=== PATIENT | female | born 1995 | race Caucasian/White ===

== ENCOUNTER 2019-04-23 18:35 | Emergency (ER) | payer BC ==
[~2019-04-23] VITALS: Ht 157.5 cm; Wt 81.6 kg
[2019-04-23 18:55] VITALS: BP 119/62
--- NOTE | 2019-04-23 18:58 | NUR ---
WAIT AT LOBBY.
--- NOTE | 2019-04-23 19:39 | NUR ---
Dr. Campos examining patient.
--- NOTE | 2019-04-23 20:03 | NUR ---
24 YO F CO SORE THROAT FOR 1W. NO COUGH PRESENT AND LUNG SOUNDS CLEAR THROUGHOUT. PT HAS NO MED HX AND IS TAKING MO RX MEDS. NO ONE AROUND PT IS SICK AT THIS TIME. PT IS CURRENTLY LAYING IN BED RESTING WITH ONE SIDE RAIL UP.
[2019-04-23] MEDS: KETOROLAC 60 MG/2 ML VIAL IM ONE (20:19)
[2019-04-23 20:41] VITALS: BP 119/62
--- NOTE | 2019-04-23 20:42 | NUR ---
Patient discharged with v/s stable. Written and verbal after care instructions given and explained. Patient alert, oriented and verbalized understanding of instructions. Ambulatory with steady gait. All questions addressed prior to discharge. ID band removed. Patient advised to follow up with PMD. Rx of PREDNISONE,MOTRIN AND ZOFRAN given. Patient educated on indication of medication including possible reaction and side effects. Opportunity to ask questions provided and answered.
--- NOTE | 2019-04-23 20:42 | NUR ---
Note pantera in EDM - 04/23/19 at 2041 by TOÑITO Patient discharged with v/s stable. Written and verbal after care instructions given and explained. Patient alert, oriented and verbalized understanding of instructions. Ambulatory with steady gait. All questions addressed prior to discharge. ID band removed. Patient advised to follow up with PMD. Rx of PREDNISONE AND MOTRIN given. Patient educated on indication of medication including possible reaction and side effects. Opportunity to ask questions provided and answered.
== END 2019-04-23 20:42 | disposition home or self-care (01) ==
LOC: MED 18:35
DX: J11.1 Influenza due to unidentified influenza virus with other respiratory manifestations (principal); J02.9 Acute pharyngitis, unspecified; Z88.0 Allergy status to penicillin
CPT/HCPCS: 81002; 96372; 99283; J1885

== ENCOUNTER 2022-09-11 09:10 | Emergency (ER) | payer BC ==
[~2022-09-11] VITALS: Ht 157.5 cm; Wt 79.4 kg
[2022-09-11 09:30] VITALS: BP 118/74; PULSE 75; RESP 20; TEMP 97.4; O2SAT 100
--- NOTE | 2022-09-11 09:30 | NUR ---
PT AMBULATED TO BED 04
--- NOTE | 2022-09-11 09:35 | NUR ---
27 Y/O FEMALE BIB SPOUSE, C/O ABDOMINAL PAIN IN LUQ THAT STARTED 2 YEARS AGO AND HAS BEEN A CHRONIC PAIN, BUT STATES PAIN HAS WORSENED WITHIN THE PAST 5 DAYS. PT CURRENTLY SEEES SPECIALIST AND PCP FOR CONDITION. SKIN IS PINK/WARM/DRY; AAOX4 WITH EVEN AND STEADY GAIT; LUNGS CLEAR BL; HR EVEN AND REGULAR; PT DENIES ANY FEVER, CP, SOB, OR COUGH AT THIS TIME; PATIENT STATES PAIN OF 9/10 AT THIS TIME (PRESSURE, ACHING); VSS; PATIENT POSITIONED FOR COMFORT; HOB ELEVATED; BEDRAILS UP X2; BED DOWN. ER MD MADE AWARE OF PT STATUS. PT IN GOWN FOR ASSESSMENT. CALL LIGHT WITHIN REACH. PMH: ASTHMA ALLERGY: PENICILLIN (HIVES) MED: LAXATIVE ([facility])
[2022-09-11 09:36] VITALS: O2SAT 100
[2022-09-11] MEDS ORDERED: BEN10 PO (09:59)
[2022-09-11] MEDS ORDERED: FAMO-92 PO (09:59)
--- NOTE | 2022-09-11 10:06 | NUR ---
Patient discharged with v/s stable. Written and verbal after care instructions FOR GERD AND IBS given and explained. Patient alert, oriented and verbalized understanding of instructions. Ambulatory with steady gait. All questions addressed prior to discharge. ID band removed. Patient advised to follow up with PMD. Rx of BENTYL AND PEPCID given. Opportunity to ask questions provided and answered.
== END 2022-09-11 10:06 | disposition home or self-care (01) ==
LOC: MED 09:10
DX: K21.9 Gastro-esophageal reflux disease without esophagitis (principal); J45.909 Unspecified asthma, uncomplicated; F41.9 Anxiety disorder, unspecified; Z88.0 Allergy status to penicillin; Z72.89 Other problems related to lifestyle; Z79.899 Other long term (current) drug therapy
CPT/HCPCS: 81002; 81025; 99283

== ENCOUNTER 2023-09-23 21:23 | Emergency (ER) | payer BC ==
[~2023-09-23] VITALS: Ht 154.9 cm; Wt 76.7 kg
[~2023-09-23 21:23] MED LIST: BEN10 PO; FAMO-92 PO
[2023-09-23 21:26] VITALS: BP 114/83; PULSE 80; RESP 18; TEMP 97.8; O2SAT 98
[2023-09-23 22:21] LABS: APPEARANCE,URINE CLEAR (CLEAR); BILIRUBIN,URINE NEGATIVE (NEGATIVE); BLOOD, URINE TRACE-I (NEGATIVE); COLOR,URINE YELLOW (YELLOW); LEUKOCYTE ESTERASE ,URINE NEGATIVE (NEGATIVE); NITRITE, URINE NEGATIVE (NEGATIVE); PROTEIN,URINE NEGATIVE (NEGATIVE); UGLUCOSE NEGATIVE (NEGATIVE); UROBILINOGEN,URINE 0.2 EU/dL (0.2 - 1)
[2023-09-23 22:42] LABS: BACTERIA,URINE >30 (MANY) /HPF (None Seen); MUCUS,URINE 1+ /LPF (None Seen); RBC,URINE 0-5 /HPF (0-5); SQUAMOUS EPITHELIAL CELL,UR 0-3 (FEW) /LPF (0-3 (FEW)); WBC,URINE 0-5 /HPF (0-5)
[2023-09-23] MEDS ORDERED: cefTRIAXone 1,000 MG VIAL ONE (23:19)
[2023-09-23] MEDS ORDERED: LIDOCAINE MPF 1% 5 ML ONE (23:19)
[2023-09-23] MEDS: cefTRIAXone 1,000 MG in LIDOCAINE MPF 1% 2.1 ML IM ONE (23:28)
[2023-09-24] MEDS ORDERED: PHEN-1877 PO (00:01)
[2023-09-24] MEDS ORDERED: CIPR500T4 PO (00:01)
[2023-09-24 00:05] VITALS: BP 125/86; PULSE 81; RESP 20; TEMP 98.8; O2SAT 98
== END 2023-09-24 00:05 | disposition home or self-care (01) ==
LOC: MED 21:23
DX: N39.0 Urinary tract infection, site not specified (principal); J45.909 Unspecified asthma, uncomplicated; Z79.899 Other long term (current) drug therapy; Z88.0 Allergy status to penicillin
CPT/HCPCS: 81001; 87086; 96372; 99283; J0696; J2001